=== PATIENT | male | born 1950 | race Caucasian/White ===

== ENCOUNTER → 2017-12-27 | Outpatient (CLI) | payer MEDICARE, BC ==
[2017-12-27 10:02] LABS: HEMATOCRIT 48.8 % (42.0-52.0); HEMOGLOBIN 16.8 g/dl (13.5-18.0); MEAN CELL VOLUME 94 fl (80.0-100.0); MEAN CORPUSCULAR HEMOGLOBIN 32 pg (27.0-31.0); MEAN CORPUSCULAR HGB CONC 34 g/dl (33.0-37.0); MEAN PLATELET VOLUME 9.5 fl (7.4-10.4); PLATELET COUNT 267 K/mm3 (130-400); RED BLOOD COUNT 5.21 M/mm3 (4.20-5.60); REDCELL DISTRIBUTION WIDTH-CV 14.4 % (11.5-14.5)
[2017-12-27 10:08] LABS: ANION GAP 10 mmol/L (7-16); BLOOD UREA NITROGEN 14 mg/dL (9-20); CALCIUM 9.7 mg/dL (8.4-10.2); CARBON DIOXIDE 27 mmol/L (22-30); CHLORIDE 106 mmol/L (98-107); CHOLESTEROL 217 mg/dL (120-200); CHOLESTEROL RISK RATIO 7.7; CREATININE, serum 0.86 mg/dL (0.66-1.25); GLUCOSE 100 mg/dL (74-106); HDL CHOLESTEROL 28 mg/dL; LDL CHOLESTEROL 143 mg/dL; MAGNESIUM 2.1 mg/dL (1.6-2.3); PHOSPHOROUS 2.7 mg/dL (2.5-4.5); POTASSIUM 3.9 mmol/L (3.4-5.0); SODIUM 143 mmol/L (137-145); TRIGLYCERIDE 228 mg/dL
[2017-12-27 10:32] LABS: TROPONIN-I < 0.012 ng/mL (0.000-0.034)
== END ==
LOC: COL.LAB 09:27
PROVIDERS: Internal Medicine Interventional Cardiology
DX: R06.02 Shortness of breath (principal)

== ENCOUNTER → 2018-03-13 | Outpatient (CLI) | payer MEDICARE, BC ==
[2018-03-13 09:22] LABS: CHOLESTEROL RISK RATIO 5.6
== END ==
LOC: COL.LAB 08:46
PROVIDERS: Internal Medicine Interventional Cardiology
DX: Z01.818 Encounter for other preprocedural examination (principal)

== ENCOUNTER 2022-06-03 09:18 | Day surgery (SDC) | payer MEDICARE, BC ==
[2022-06-03] VITALS (9 sets, daily range): BP systolic 135–180; BP diastolic 80–132; PULSE 85–115; TEMP 98.6
[~2022-06-03] VITALS: Ht 167.6 cm; Wt 108.3 kg
[2022-06-03 10:16] LABS: INR 1.4 (0.8-3.0); PROTHROMBIN TIME 16.3 SECONDS (9.7-12.8)
[2022-06-03] MEDS ORDERED: MINOXIDIL 10 PO (10:16)
[2022-06-03] MEDS ORDERED: ZOLOFT 50MG50 MG PO (10:17)
[2022-06-03] MEDS ORDERED: CLARITIN 1010 MG/TAB PO (10:18)
[2022-06-03 10:19] LABS: POTASSIUM 3.8 mmol/L (3.5-4.5)
[2022-06-03] MEDS ORDERED: FLONASEALLERGY NS (10:19)
[2022-06-03] MEDS ORDERED: ELIQUIS 5MG PO (10:21)
[2022-06-03 10:47] LABS: THYROID STIMULATING HORMONE 3.067 uIU/mL (0.350-4.940)
[2022-06-03] MEDS ORDERED: PACERONE400 MG PO (12:08)
[2022-06-03] MEDS ORDERED: PACERONE200 MG PO ×2 (12:09)
--- NOTE | 2022-06-03 13:00 | NUR ---
Discharge education given to pt, pt verbalizes understanding, however pt states "maybe I will and maybe I won't take that medication". This nurse encouraged pt to take his medication like his doctor wants him too. Daughter encouraged pt also. Pt escorted out via wheelchair to daughters vehicle.
[2022-06-12] MEDS ORDERED: BENADRYL25 M2 PO (22:20)
== END 2022-06-03 13:00 | disposition home or self-care (01) ==
LOC: COL.CAR 09:18
PROVIDERS: Internal Medicine Interventional Cardiology
DX: I11.0 Hypertensive heart disease with heart failure (principal); I50.9 Heart failure, unspecified; I48.0 Paroxysmal atrial fibrillation
CPT/HCPCS: J2704; J3010; J7030